=== PATIENT | male | born 1995 | race Native Hawaiian/Other Pacific Islander ===

== ENCOUNTER 2018-09-26 14:38 | Emergency (ER) | payer OTHER ==
[2018-09-26 14:40] VITALS: BMI 23.5
[2018-09-26 14:43] VITALS: BP 135/84; PULSE 65; RESP 18; TEMP 98.3; O2SAT 100
--- NOTE | 2018-09-26 14:58 | C.PDOC ---
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 Otherwise, pt denies any other active complaints. Time Seen by Provider: 09/26/18 14:39 Chief Complaint (Nursing): Medical Clearance History Per: Patient Past Medical History Reviewed: Historical Data, Nursing Documentation, Vital Signs Vital Signs: Last Vital Signs Temp 98.3 F 09/26/18 14:40 Pulse 65 09/26/18 14:40 Resp 18 09/26/18 14:40 BP 135/84 09/26/18 14:40 Pulse Ox 100 09/26/18 14:40 - Medical History PMH: No Chronic Diseases Family History: States: No Known Family Hx - Social History Hx Tobacco Use: No Hx Alcohol Use: No Hx Substance Use: No - Immunization History Hx Tetanus Toxoid Vaccination: Yes Hx Influenza Vaccination: Yes (2018) Hx Pneumococcal Vaccination: No Review Of Systems Except As Marked, All Systems Reviewed And Found Negative. Constitutional: Negative for: Fever, Chills Eyes: Negative for: Vision Change ENT: Negative for: Ear Discharge, Nose Discharge, Throat Pain, Throat Swelling Cardiovascular: Negative for: Chest Pain Respiratory: Negative for: Cough, Shortness of Breath, Wheezing Gastrointestinal: Negative for: Nausea, Vomiting, Abdominal Pain Genitourinary: Negative for: Dysuria, Frequency, Incontinence Musculoskeletal: Negative for: Neck Pain Skin: Positive for: Lesions Neurological: Negative for: Weakness, Numbness, Altered Mental Status, Headache, Dizziness Physical Exam - Physical Exam Appears: Well, Non-toxic, No Acute Distress Skin: Normal Color, Warm, Dry, Other (superificial linear abrasion over Right dorsal forearm. no edmea, no erythema, no proximal streaking.) Eye(s): bilateral: PERRL Nose: No Flaring Oral Mucosa: Moist Tongue: Normal Appearing Throat: No Drooling Neck: Trachea Midline, Supple Cardiovascular: Rhythm Regular Respiratory: No Decreased Breath Sounds, No Accessory Muscle Use, No Stridor, No Wheezing Gastrointestinal/Abdominal: Soft, No Tenderness, No Distention, No Guarding Back: No CVA Tenderness Extremity: Normal ROM, No Tenderness, No Deformity, No Swelling Neurological/Psych: Oriented x3, Normal Speech, Normal Motor, Normal Sensation, Normal Reflexes ED Course And Treatment - Laboratory Results Result Diagrams: 09/26/18 15:24 09/26/18 15:24 O2 Sat by Pulse Oximetry: 100 Pulse Ox Interpretation: Normal Progress Note: Initial/baseline Blood work performed. Localized Injury to Right forearm appears to be superifial and not significant to initiat anti-viral proph tx. Pt reports, immunizatin is UTD including Hep B, tetanus. Pt advised. ref. to f/u with [facility] in 24-48 hrs for re-evaluation and further tx. return if any new changes. Disposition Counseled Patient/Family Regarding: Diagnosis, Need For Followup - Disposition Referrals: [facility] [Outside] Disposition: HOME/ ROUTINE Disposition Time: 14:58 Condition: STABLE Additional Instructions: Follow up with [employer] [facility] in 24-48 hrs fir further evaluation. return if any new changes. Instructions: Blood or Body Fluid Exposure Forms: [facility] (Lithuanian) - Clinical Impression Clinical Impression: Exposure to blood or body fluid
[2018-09-26 15:32] LABS: BASO % 0.8 % (0.0-2.0); EOS # 0.1 K/uL (0.0-0.7); HEMOGLOBIN 14.5 g/dL (12.0-18.0); LYMPH # 2.1 K/uL (1.0-4.3); LYMPH % 39.8 % (20.0-40.0); MEAN CELL VOLUME 83.4 fL (80.0-94.0); MEAN CORPUSCULAR HGB CONC 33.5 g/dL (33.0-37.0); MEAN PLATELET VOLUME 7.7 fL (7.2-11.7); MONO # 0.4 K/uL (0.0-0.8); NEUT # 2.7 K/uL (1.8-7.0); NEUT % 51.4 % (50.0-75.0); NRBC % 0.1 % (0.0-2.0); RBC 5.17 Mil/uL (4.40-5.90); RED CELL DISTRIBUTION WIDTH 13.6 % (11.5-14.5); WHITE BLOOD COUNT 5.3 K/uL (4.8-10.8)
[2018-09-26 15:43] LABS: ALB/GLOB RATIO 1.4 (1.0-2.1); ALBUMIN 4.8 g/dL (3.5-5.0); ALT/SGPT 27 U/L (21-72); AMYLASE 101 U/L (30-110); AST/SGOT 23 U/L (17-59); BLOOD UREA NITROGEN 13 mg/dL (9-20); CALCIUM 9.5 mg/dl (8.6-10.4); GFR NON-AFRICAN AMERICAN > 60
[2018-09-26 15:58] LABS: URINE BILIRUBIN NEGATIVE (NEGATIVE); URINE BLOOD NEGATIVE (NEGATIVE); URINE CLARITY Clear (Clear); URINE COLOR Yellow (YELLOW); URINE GLUCOSE (UA) NORMAL (Normal); URINE LEUKOCYTE ESTERASE NEG Leu/uL (Negative); URINE PROTEIN NEGATIVE (NEGATIVE); URINE UROBILINOGEN NORMAL mg/dL (0.2-1.0)
[2018-09-26 16:13] LABS: HEPATITIS B SURFACE AG Negative (NEGATIVE)
[2018-09-26 16:19] LABS: HEPATITIS A IGM NEGATIVE (NEGATIVE); HEPATITIS B CORE AB NEGATIVE (NEGATIVE)
[2018-09-26 16:31] LABS: HEPATITIS C ANTIBODY NEGATIVE (NEGATIVE)
== END 2018-09-26 15:24 | disposition home or self-care (01) ==
LOC: MERGE 14:38 → C.ER 14:38
DX: Z77.21 Contact with and (suspected) exposure to potentially hazardous body fluids (principal)